=== PATIENT | female | born 1975 | race Two or more races ===

== ENCOUNTER 2017-08-25 22:18 | Emergency (ER) | payer BC, MEDICAID ==
[2017-08-25 22:38] VITALS: BP 176/119
[2017-08-25] MEDS ORDERED: HYDROmorphone 1 MG/ML Syringe IM ONE (23:19)
[2017-08-25] MEDS ORDERED: LORazepam 1 MG Tab PO ONE (23:20)
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
== END 2017-08-25 23:40 | disposition home or self-care (01) ==
LOC: JD.ED 22:18
DX: F43.21 Adjustment disorder with depressed mood (principal); R51 Headache; I10 Essential (primary) hypertension; J45.909 Unspecified asthma, uncomplicated
CPT/HCPCS: 96372; 99283; A9270; J1170

== ENCOUNTER 2017-10-30 15:55 | Emergency (ER) | payer BC, MEDICAID ==
[2017-10-30 16:21] VITALS: BP 139/99
[2017-10-30] MEDS ORDERED: Haloperidol Lactate 5 MG/ML SDV IM ONE (17:47)
[2017-10-30] MEDS ORDERED: diphenhydrAMINE 50 MG/ML SDV IM ONE (17:47)
[2017-10-30] MEDS ORDERED: Ketorolac 60 MG/2 ML SDV IM ONE (17:47)
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
== END 2017-10-30 19:15 | disposition home or self-care (01) ==
LOC: JD.ED 15:55
DX: F41.8 Other specified anxiety disorders (principal); F43.20 Adjustment disorder, unspecified; R51 Headache; I10 Essential (primary) hypertension; Z79.899 Other long term (current) drug therapy
CPT/HCPCS: 96372; 99283; J1200; J1630; J1885

== ENCOUNTER 2017-11-03 19:01 | Emergency (ER) | payer BC ==
[2017-11-03 19:21] VITALS: BP 137/94
[2017-11-03] MEDS ORDERED: HYDROmorphone 1 MG/ML Syringe IM ONE (19:51)
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
--- NOTE | 2017-11-05 17:47 | CR ---
Sacrum and coccyx: Three views of the sacrum and coccyx were obtained. Comparison: No prior study. Sacroiliac joints appear within normal limits. Sacral foramina are patent. No fracture or abnormal subluxation is seen. Impression: 1. No abnormality is identified on three-view sacrum and coccyx study. Diagnostic code #1
== END 2017-11-03 22:55 | disposition home or self-care (01) ==
LOC: JD.ED 19:01
DX: S30.0XXA Contusion of lower back and pelvis, initial encounter (principal); I10 Essential (primary) hypertension; F32.9 Major depressive disorder, single episode, unspecified; J45.909 Unspecified asthma, uncomplicated; Z79.899 Other long term (current) drug therapy; W00.1XXA Fall from stairs and steps due to ice and snow, initial encounter
CPT/HCPCS: 72220; 72220-26; 96372; 99283-25; J1170

== ENCOUNTER 2018-11-14 09:08 | Emergency (ER) | payer BC, MEDICAID ==
[2018-11-14 09:24] VITALS: BP 151/96
[2018-11-14] MEDS ORDERED: Prochlorperazine 10 MG/2 ML SDV IVPUSH ONE (09:49)
[2018-11-14] MEDS ORDERED: Ketorolac 30 MG/ML SDV IVPUSH ONE (09:49)
[2018-11-14] MEDS ORDERED: diphenhydrAMINE 50 MG/ML SDV IVPUSH ONE (09:49)
[2018-11-14] MEDS ORDERED: Sodium Chloride 0.9% 10 ML Syringe FLUSH PRN (09:49)
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
== END 2018-11-14 11:28 | disposition home or self-care (01) ==
LOC: JD.ED 09:08
DX: R51 Headache (principal); I10 Essential (primary) hypertension; Z79.899 Other long term (current) drug therapy
CPT/HCPCS: 96374; 96375; 99284; J0780; J1200; J1885

== ENCOUNTER 2018-12-04 07:56 | Emergency (ER) | payer BC ==
[2018-12-04 08:07] VITALS: BP 158/122
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
== END 2018-12-04 08:51 | disposition home or self-care (01) ==
LOC: JD.ED 07:56
DX: H15.101 Unspecified episcleritis, right eye (principal); I10 Essential (primary) hypertension; F41.9 Anxiety disorder, unspecified; F32.9 Major depressive disorder, single episode, unspecified; Z79.899 Other long term (current) drug therapy; Z98.51 Tubal ligation status
CPT/HCPCS: 99282

== ENCOUNTER 2019-02-05 04:13 | Emergency (ER) | payer BC, MEDICAID ==
[2019-02-05 04:28] VITALS: BP 184/120
[2019-02-05] MEDS ORDERED: Famotidine 20 MG Tab PO ONE (04:42)
[2019-02-05] MEDS ORDERED: methylPREDNISolone Sodium Succinate 125 MG/2 ML SDV IM ONE (04:42)
[2019-02-05] MEDS ORDERED: diphenhydrAMINE 50 MG Cap PO ONE (04:42)
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
== END 2019-02-05 05:20 | disposition home or self-care (01) ==
LOC: JD.ED 04:13
DX: T78.40XA Allergy, unspecified, initial encounter (principal); J45.909 Unspecified asthma, uncomplicated; F41.9 Anxiety disorder, unspecified; F32.9 Major depressive disorder, single episode, unspecified; Z79.899 Other long term (current) drug therapy
CPT/HCPCS: 96372; 99283; A9270; J2930; 99284

== ENCOUNTER 2019-03-06 07:25 | Emergency (ER) | payer BC, MEDICAID ==
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
[2019-03-06 08:26] VITALS: BP 147/92
== END 2019-03-06 08:15 | disposition home or self-care (01) ==
LOC: JD.ED 07:25
DX: M25.561 Pain in right knee (principal); I10 Essential (primary) hypertension; J45.909 Unspecified asthma, uncomplicated; F41.9 Anxiety disorder, unspecified; F32.9 Major depressive disorder, single episode, unspecified; Z79.899 Other long term (current) drug therapy
CPT/HCPCS: 99283

== ENCOUNTER 2019-06-13 08:14 | Emergency (ER) | payer BC, MEDICAID ==
[2019-06-13 08:32] VITALS: BP 144/103; PULSE 97
[2019-06-13] MEDS ORDERED: HYDROmorphone 1 MG/ML Syringe IVPUSH ONE (08:47)
[2019-06-13] MEDS ORDERED: diphenhydrAMINE 50 MG/ML SDV IVPUSH ONE (08:48)
[2019-06-13] MEDS ORDERED: Metoclopramide 10 MG/2 ML SDV IVPUSH ONE (08:48)
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
[2019-06-13] MEDS ORDERED: Ketorolac 30 MG/ML SDV IVPUSH SCH (09:00)
[2019-06-13] MEDS ORDERED: Dextrose 5%-0.9% NaCl 1,000 ML IV SCH (09:00)
== END 2019-06-13 10:49 | disposition home or self-care (01) ==
LOC: JD.ED 08:14
DX: G43.909 Migraine, unspecified, not intractable, without status migrainosus (principal); I10 Essential (primary) hypertension; J45.909 Unspecified asthma, uncomplicated; F41.9 Anxiety disorder, unspecified; F32.9 Major depressive disorder, single episode, unspecified; Z79.899 Other long term (current) drug therapy
CPT/HCPCS: 96361; 96374; 96375; 99283; J1170; J1200; J1885; J2765; J7042; 99284

== ENCOUNTER 2019-08-21 11:31 | Emergency (ER) | payer BC, MEDICAID ==
[2019-08-21] MEDS ORDERED: HYDROmorphone 0.5 MG/0.5 ML Syringe IVPUSH ONE (11:56)
[2019-08-21] MEDS ORDERED: Ketorolac 60 MG/2 ML SDV IVPUSH ONE (11:57)
[2019-08-21] MEDS ORDERED: diphenhydrAMINE 50 MG/ML SDV IVPUSH ONE (11:58)
[2019-08-21] MEDS ORDERED: Metoclopramide 10 MG/2 ML SDV IVPUSH ONE (11:59)
[2019-08-21] MEDS ORDERED: Sodium Chloride 0.9% 1,000 ML IV SCH (12:00)
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
[2019-08-21 14:01] VITALS: BP 151/99; PULSE 79
== END 2019-08-21 13:45 | disposition home or self-care (01) ==
LOC: JD.ED 11:31
DX: G43.909 Migraine, unspecified, not intractable, without status migrainosus (principal); J45.909 Unspecified asthma, uncomplicated; I10 Essential (primary) hypertension; Z79.899 Other long term (current) drug therapy
CPT/HCPCS: 96361; 96374; 96375; 99283; J1170; J1200; J1885; J2765; J7040

== ENCOUNTER 2019-12-21 08:33 | Emergency (ER) | payer BC, MEDICAID ==
[2019-12-21 08:48] VITALS: BP 161/104; PULSE 85
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
[2019-12-21] MEDS ORDERED: Lactated Ringers 1,000 ML IV ONE (09:07)
[2019-12-21] MEDS ORDERED: diphenhydrAMINE 50 MG/ML SDV IVPUSH ONE (09:07)
[2019-12-21] MEDS ORDERED: LORazepam 2 MG/ML SDV IVPUSH ONE (09:07)
[2019-12-21] MEDS ORDERED: Ondansetron 4 MG/2 ML SDV IVPUSH ONE (09:07)
[2019-12-21] MEDS ORDERED: HYDROmorphone 0.5 MG/0.5 ML Syringe IVPUSH ONE (10:16)
== END 2019-12-21 11:20 | disposition home or self-care (01) ==
LOC: JD.ED 08:33
DX: R51 Headache (principal); I10 Essential (primary) hypertension; J45.909 Unspecified asthma, uncomplicated; F41.9 Anxiety disorder, unspecified; F32.9 Major depressive disorder, single episode, unspecified; Z79.899 Other long term (current) drug therapy
CPT/HCPCS: 96361; 96374; 96375; 99283; J1170; J1200; J2060; J2405; J7120

== ENCOUNTER 2020-04-27 13:19 | Emergency (ER) | payer BC, MEDICAID ==
[2020-04-27 13:43] VITALS: BP 160/104; PULSE 80
[2020-04-27] MEDS ORDERED: Sodium Chloride 0.9% 10 ML Syringe FLUSH PRN (14:03)
[2020-04-27] MEDS ORDERED: Ondansetron 4 MG/2 ML SDV IVPUSH ONE (14:03)
[2020-04-27] MEDS ORDERED: Sodium Chloride 0.9% 1,000 ML IV SCH (14:15)
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
--- NOTE | 2020-04-27 15:27 | CT ---
Head CT Technique: Multiple axial sections through the brain were obtained. Intravenous contrast was not utilized. Comparison: Prior head CT study of 04/06/16. Findings: Ventricles along with basal cisterns and sulci over the convexities are within normal limits for the patient's age. No abnormal parenchymal densities are seen. No evidence of intracranial hemorrhage. No midline shift or mass-effect is seen. Bone window settings were reviewed. No acute calvarial finding is seen. Visualized mastoid sinuses and visualized paranasal sinuses are clear. Impression: 1. No acute intracranial abnormality is appreciated. Diagnostic code #1 This report was dictated in MDT
== END 2020-04-27 16:22 | disposition home or self-care (01) ==
LOC: JD.ED 13:19
DX: R42 Dizziness and giddiness (principal); I10 Essential (primary) hypertension; Z98.890 Other specified postprocedural states; Z88.8 Allergy status to other drugs, medicaments and biological substances; Z79.899 Other long term (current) drug therapy
CPT/HCPCS: 36415; 70450; 80053; 85025; 96361; 96374; 99284; A9270; J2405; J7030; 99283

== ENCOUNTER 2020-05-22 17:03 | Emergency (ER) | payer BC ==
[2020-05-22 17:22] VITALS: BP 137/105; PULSE 86
[2020-05-22] MEDS ORDERED: Sodium Chloride 0.9% 10 ML Syringe FLUSH PRN (17:22)
[2020-05-22] MEDS ORDERED: Metoclopramide 10 MG/2 ML SDV IVPUSH ONE (17:22)
[2020-05-22] MEDS ORDERED: Sodium Chloride 0.9% 1,000 ML IV ONE (17:22)
[2020-05-22] MEDS ORDERED: Ketorolac 30 MG/ML SDV IVPUSH ONE (17:22)
[2020-05-22] MEDS ORDERED: diphenhydrAMINE 50 MG/ML SDV IVPUSH ONE (17:22)
[2020-05-22] MEDS ORDERED: HYDROmorphone 0.5 MG/0.5 ML Syringe IVPUSH ONE (17:31)
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
== END 2020-05-22 19:05 | disposition home or self-care (01) ==
LOC: JD.ED 17:03
DX: G43.909 Migraine, unspecified, not intractable, without status migrainosus (principal); I10 Essential (primary) hypertension; J45.909 Unspecified asthma, uncomplicated; F32.9 Major depressive disorder, single episode, unspecified; Z79.899 Other long term (current) drug therapy; Z88.8 Allergy status to other drugs, medicaments and biological substances
CPT/HCPCS: 96361; 96374; 96375; 99283; J1170; J1200; J1885; J2765; J7030

== ENCOUNTER 2020-10-05 04:43 | Emergency (ER) | payer BC ==
[2020-10-05 04:52] VITALS: BP 148/100; PULSE 83
[2020-10-05] MEDS ORDERED: Ketorolac 30 MG/ML SDV IVPUSH STA (05:12)
[2020-10-05] MEDS ORDERED: Metoclopramide 10 MG/2 ML SDV IVPUSH STA (05:12)
[2020-10-05] MEDS ORDERED: diphenhydrAMINE 50 MG/ML SDV IVPUSH STA (05:12)
[2020-10-05] MEDS ORDERED: Sodium Chloride 0.9% 1,000 ML IV ONE (05:12)
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
== END 2020-10-05 06:50 | disposition home or self-care (01) ==
LOC: JD.ED 04:43
DX: R51.9 Headache, unspecified (principal); I10 Essential (primary) hypertension; J45.909 Unspecified asthma, uncomplicated; E66.9 Obesity, unspecified; Z68.41 Body mass index [BMI] 40.0-44.9, adult; Z88.8 Allergy status to other drugs, medicaments and biological substances; Z79.899 Other long term (current) drug therapy
CPT/HCPCS: 96374; 96375; 99283; J1200; J1885; J2765; J7030

== ENCOUNTER 2021-02-04 06:55 | Emergency (ER) | payer BC, MEDICAID ==
[2021-02-04 07:09] VITALS: BP 176/133; PULSE 88
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
[2021-02-04] MEDS ORDERED: diphenhydrAMINE 50 MG/ML SDV IVPUSH ONE (07:17)
[2021-02-04] MEDS ORDERED: Lactated Ringers 1,000 ML IV ONE (07:17)
[2021-02-04] MEDS ORDERED: Ketorolac 15 MG/ML SDV IVPUSH ONE (07:17)
[2021-02-04] MEDS ORDERED: Metoclopramide 10 MG/2 ML SDV IVPUSH ONE (07:17)
== END 2021-02-04 09:05 | disposition home or self-care (01) ==
LOC: JD.ED 06:55
DX: G43.909 Migraine, unspecified, not intractable, without status migrainosus (principal); Z88.8 Allergy status to other drugs, medicaments and biological substances; I10 Essential (primary) hypertension; E66.9 Obesity, unspecified; J45.909 Unspecified asthma, uncomplicated; Z79.899 Other long term (current) drug therapy; Z68.41 Body mass index [BMI] 40.0-44.9, adult
CPT/HCPCS: 96374; 96375; 99283; J1200; J1885; J2765; J7120

== ENCOUNTER 2021-09-01 13:59 | Emergency (ER) | payer BC ==
[2021-09-01 14:33] VITALS: BP 162/125; PULSE 98
[2021-09-01] MEDS ORDERED: Ketorolac 30 MG/ML SDV IVPUSH ONE (14:39)
[2021-09-01] MEDS ORDERED: Sodium Chloride 0.9% 1,000 ML IV STA (14:39)
[2021-09-01] MEDS ORDERED: Metoclopramide 10 MG/2 ML SDV IVPUSH ONE (14:39)
[2021-09-01] MEDS ORDERED: diphenhydrAMINE 50 MG/ML SDV IVPUSH ONE (14:40)
[2021-09-01] MEDS ORDERED: HYDROmorphone 0.5 MG/0.5 ML Syringe IVPUSH ONE (14:40)
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
== END 2021-09-01 16:05 | disposition home or self-care (01) ==
LOC: JD.ED 13:59
DX: G43.909 Migraine, unspecified, not intractable, without status migrainosus (principal); J45.909 Unspecified asthma, uncomplicated; I10 Essential (primary) hypertension; E66.9 Obesity, unspecified; Z68.41 Body mass index [BMI] 40.0-44.9, adult; Z79.899 Other long term (current) drug therapy; Z88.8 Allergy status to other drugs, medicaments and biological substances; Z91.048 Other nonmedicinal substance allergy status
CPT/HCPCS: 96374; 96375; 99283; J1170; J1200; J1885; J2765; J7030

== ENCOUNTER 2022-01-03 12:02 | Emergency (ER) | payer BC, MEDICAID ==
[2022-01-03] MEDS ORDERED: Sodium Chloride 0.9% 10 ML Syringe FLUSH PRN ×3 (12:21→12:35)
[2022-01-03] MEDS ORDERED: Ondansetron 4 MG/2 ML SDV IVPUSH ONE (12:25)
[2022-01-03] MEDS ORDERED: Sodium Chloride 0.9% 1,000 ML IV STA (12:25)
[2022-01-03] MEDS ORDERED: HYDROmorphone 0.5 MG/0.5 ML Syringe IVPUSH ONE ×2 (12:25→13:34)
[2022-01-03] MEDS ORDERED: Iopamidol 612 MG/ML 100 ML Bottle IVPUSH ONE (12:32)
[2022-01-03] MEDS ORDERED: Iopamidol 755 Mg/ML 100 ML Bottle IVPUSH ONE (12:35)
[2022-01-03] MEDS ORDERED: Iopamidol 755 MG/ML 50 ML Bottle IVPUSH ONE (12:35)
[2022-01-03] MEDS ORDERED: Acetaminophen/oxyCODONE 325-5 MG Tab PO ONE (14:09)
[2022-01-03 14:25] VITALS: BP 148/74; PULSE 99
== END 2022-01-03 14:25 | disposition home or self-care (01) ==
LOC: JD.ED 12:02
DX: K92.2 Gastrointestinal hemorrhage, unspecified (principal); G89.18 Other acute postprocedural pain; I10 Essential (primary) hypertension; E66.9 Obesity, unspecified; Z68.41 Body mass index [BMI] 40.0-44.9, adult; Z88.8 Allergy status to other drugs, medicaments and biological substances; Z91.09 Other allergy status, other than to drugs and biological substances; Z20.822 Contact with and (suspected) exposure to COVID-19
CPT/HCPCS: 36415; 74177; 80053; 82272; 85025; 86140; 86850; 86900; 86901; 87635; 96374; 96375; 96376; 99285; A9270; J1170; J2405; J3490; J7030; Q9967; U0002

== ENCOUNTER 2022-01-09 00:23 | Emergency (ER) | payer BC ==
[2022-01-09 00:46] VITALS: BP 144/98; PULSE 97
[2022-01-09] MEDS ORDERED: Acetaminophen/oxyCODONE 325-5 MG Tab PO ONE (03:23)
== END 2022-01-09 03:37 | disposition home or self-care (01) ==
LOC: JD.ED 00:23
DX: R10.9 Unspecified abdominal pain (principal); I10 Essential (primary) hypertension; E66.9 Obesity, unspecified; Z68.41 Body mass index [BMI] 40.0-44.9, adult; Z88.8 Allergy status to other drugs, medicaments and biological substances
CPT/HCPCS: 99283; A9270

== ENCOUNTER 2022-07-28 16:28 | Emergency (ER) | payer BC, OTHER ==
[2022-07-28 16:46] VITALS: BP 168/119; PULSE 78
[2022-07-28] MEDS ORDERED: Ketorolac 30 MG/ML SDV IVPUSH ONE (19:02)
[2022-07-28] MEDS ORDERED: Sodium Chloride 0.9% 1,000 ML IV STA (19:02)
[2022-07-28] MEDS ORDERED: Metoclopramide 10 MG/2 ML SDV IVPUSH ONE (19:02)
[2022-07-28] MEDS ORDERED: HYDROmorphone 0.5 MG/0.5 ML Syringe IVPUSH ONE (19:02)
[2022-07-28] MEDS ORDERED: diphenhydrAMINE 50 MG/ML SDV IVPUSH ONE (19:03)
== END 2022-07-28 21:10 | disposition home or self-care (01) ==
LOC: JD.ED 16:28
DX: G43.919 Migraine, unspecified, intractable, without status migrainosus (principal); I10 Essential (primary) hypertension; J45.909 Unspecified asthma, uncomplicated; E66.9 Obesity, unspecified; Z68.31 Body mass index [BMI] 31.0-31.9, adult; Z88.8 Allergy status to other drugs, medicaments and biological substances; Z91.048 Other nonmedicinal substance allergy status; Z79.899 Other long term (current) drug therapy
CPT/HCPCS: 96361; 96374; 96375; 99283; J1170; J1200; J1885; J2765; J7030

== ENCOUNTER 2022-10-12 17:39 | Emergency (ER) | payer BC ==
[2022-10-12 18:06] VITALS: BP 166/119; PULSE 92
[2022-10-12] MEDS ORDERED: Sodium Chloride 0.9% 10 ML Syringe FLUSH PRN (18:23)
[2022-10-12] MEDS ORDERED: Ondansetron 4 MG/2 ML SDV IVPUSH ONE (18:23)
[2022-10-12] MEDS ORDERED: Ketorolac 30 MG/ML SDV IVPUSH ONE (18:23)
[2022-10-12] MEDS ORDERED: Sodium Chloride 0.9% 1,000 ML IV ONE (18:23)
[2022-10-12] MEDS ORDERED: HYDROmorphone 0.5 MG/0.5 ML Syringe IVPUSH ONE (20:02)
== END 2022-10-12 21:25 | disposition home or self-care (01) ==
LOC: JD.ED 17:39
DX: U07.1 COVID-19 (principal); I10 Essential (primary) hypertension; J45.909 Unspecified asthma, uncomplicated; E66.9 Obesity, unspecified; Z68.30 Body mass index [BMI] 30.0-30.9, adult; Z88.8 Allergy status to other drugs, medicaments and biological substances; Z91.09 Other allergy status, other than to drugs and biological substances
CPT/HCPCS: 36415; 80053; 83735; 85025; 96361; 96374; 96375; 99283; J1170; J1885; J2405; J3490; J7030

== ENCOUNTER 2022-10-16 14:02 | Emergency (ER) | payer BC ==
[2022-10-16] MEDS ORDERED: HYDROmorphone 1 MG/ML Syringe IM ONE (14:53)
[2022-10-16] MEDS ORDERED: Ondansetron 4 MG Tab.DIS PO ONE (14:53)
[2022-10-16] MEDS ORDERED: Ketorolac 30 MG/ML SDV IM ONE (15:33)
[2022-10-16] MEDS ORDERED: HYDROmorphone 0.5 MG/0.5 ML Syringe IM ONE (15:33)
[2022-10-16 17:10] VITALS: BP 159/115; PULSE 76
== END 2022-10-16 17:05 | disposition home or self-care (01) ==
LOC: JD.ED 14:02
DX: R51.9 Headache, unspecified (principal); I10 Essential (primary) hypertension; E66.9 Obesity, unspecified; Z68.29 Body mass index [BMI] 29.0-29.9, adult; Z88.8 Allergy status to other drugs, medicaments and biological substances; Z91.09 Other allergy status, other than to drugs and biological substances
CPT/HCPCS: 96372; 99283; A9270; J1170; J1885

== ENCOUNTER 2022-10-17 15:02 | Emergency (ER) | payer BC ==
[2022-10-17 15:10] VITALS: PULSE 104
[2022-10-17] MEDS ORDERED: Ketorolac 60 MG/2 ML SDV IM ONE (15:25)
[2022-10-17] MEDS ORDERED: LORazepam 2 MG/ML SDV IM ONE ×2 (15:26→16:23)
[2022-10-17] MEDS ORDERED: Acetaminophen 325 MG Tab PO ONE (17:14)
[2022-10-17 17:47] VITALS: BP 146/108
== END 2022-10-17 17:40 | disposition home or self-care (01) ==
LOC: JD.ED 15:02
DX: F41.9 Anxiety disorder, unspecified (principal); R51.9 Headache, unspecified; I10 Essential (primary) hypertension; J45.909 Unspecified asthma, uncomplicated; E66.9 Obesity, unspecified; Z68.29 Body mass index [BMI] 29.0-29.9, adult; Z88.8 Allergy status to other drugs, medicaments and biological substances; Z91.048 Other nonmedicinal substance allergy status; Z79.899 Other long term (current) drug therapy
CPT/HCPCS: 96372; 99283; A9270; J1885; J2060

== ENCOUNTER 2022-10-18 00:31 | Emergency (ER) | payer BC ==
[2022-10-18] MEDS ORDERED: HYDROmorphone 1 MG/ML Syringe IM ONE ×2 (01:59→02:32)
[2022-10-18] MEDS ORDERED: diphenhydrAMINE 50 MG Cap PO ONE (01:59)
[2022-10-18 02:58] VITALS: BP 145/70; PULSE 89
== END 2022-10-18 02:57 | disposition home or self-care (01) ==
LOC: JD.ED 00:31
DX: G47.00 Insomnia, unspecified (principal); I10 Essential (primary) hypertension; E66.9 Obesity, unspecified; Z88.8 Allergy status to other drugs, medicaments and biological substances; Z68.30 Body mass index [BMI] 30.0-30.9, adult; Z79.899 Other long term (current) drug therapy
CPT/HCPCS: 96372; 99283; J1170; Q0163

== ENCOUNTER 2022-12-30 09:05 | Emergency (ER) | payer BC ==
[2022-12-30 10:19] LABS: CORONAVIRUS COVID-19 NAA NEGATIVE (NEGATIVE)
[2022-12-30] MEDS ORDERED: diphenhydrAMINE 50 MG/ML SDV IVPUSH ONE (10:19)
[2022-12-30] MEDS ORDERED: Ondansetron 4 MG/2 ML SDV IVPUSH ONE (10:19)
[2022-12-30] MEDS ORDERED: Lactated Ringers 1,000 ML IV ONE (10:19)
[2022-12-30] MEDS ORDERED: Acetaminophen 325 MG Tab PO ONE (11:31)
[2022-12-30] MEDS ORDERED: LORazepam 2 MG/ML SDV IVPUSH ONE (11:32)
[2022-12-30 13:32] VITALS: BP 155/104; PULSE 68
== END 2022-12-30 13:02 | disposition home or self-care (01) ==
LOC: JD.ED 09:05
DX: G44.209 Tension-type headache, unspecified, not intractable (principal); M79.10 Myalgia, unspecified site; J45.909 Unspecified asthma, uncomplicated; E66.9 Obesity, unspecified; Z68.30 Body mass index [BMI] 30.0-30.9, adult; Z91.09 Other allergy status, other than to drugs and biological substances; Z88.8 Allergy status to other drugs, medicaments and biological substances; Z86.16 Personal history of COVID-19; Z20.822 Contact with and (suspected) exposure to COVID-19
CPT/HCPCS: 0241U; 36415; 80053; 83690; 83735; 85025; 96361; 96374; 96375; 99284; A9270; J1200; J2060; J2405; J7120; 99283

== ENCOUNTER 2022-12-30 19:59 | Emergency (ER) | payer BC ==
[2022-12-30] MEDS ORDERED: Ketorolac 30 MG/ML SDV IM ONE (20:35)
[2022-12-30] MEDS ORDERED: HYDROmorphone 1 MG/ML Syringe IM ONE (20:35)
[2022-12-30] MEDS ORDERED: Metoclopramide 10 MG/2 ML SDV IM ONE (20:35)
[2022-12-30] MEDS ORDERED: diphenhydrAMINE 50 MG/ML SDV IM ONE (20:35)
[2022-12-30] MEDS ORDERED: HYDROmorphone 0.5 MG/0.5 ML Syringe IM ONE (22:00)
[2022-12-30 23:25] VITALS: BP 137/99; PULSE 85
== END 2022-12-30 22:30 | disposition home or self-care (01) ==
LOC: JD.ED 19:59
DX: R51.9 Headache, unspecified (principal); I10 Essential (primary) hypertension; J45.909 Unspecified asthma, uncomplicated; E66.9 Obesity, unspecified; Z68.30 Body mass index [BMI] 30.0-30.9, adult; Z86.16 Personal history of COVID-19
CPT/HCPCS: 96372; 99283; J1170; J1200; J1885

== ENCOUNTER 2023-02-13 18:15 | Emergency (ER) | payer BC ==
[2023-02-13] MEDS ORDERED: Sodium Chloride 0.9% 10 ML Syringe FLUSH PRN (19:11)
[2023-02-13] MEDS ORDERED: HYDROmorphone 0.5 MG/0.5 ML Syringe IVPUSH ONE ×2 (19:12→20:31)
[2023-02-13] MEDS ORDERED: Sodium Chloride 0.9% 1,000 ML IV STA (19:12)
[2023-02-13] MEDS ORDERED: Ondansetron 4 MG/2 ML SDV IVPUSH ONE (19:12)
[2023-02-13 19:34] LABS: APPEARANCE,URINE CLEAR (Clear); BILIRUBIN,URINE NEGATIVE (Negative); COLOR,URINE YELLOW (Yellow); GLUCOSE,URINE NEGATIVE (Negative); KETONES,URINE NEGATIVE (Negative); LEUKOCYTE ESTERASE,URINE TRACE (Negative); NITRITE,URINE NEGATIVE (Negative); OCCULT BLOOD,URINE 3+ (Negative); PROTEIN,URINE NEGATIVE (Negative); UROBILINOGEN,URINE 0.2 (0.2-1.0)
[2023-02-13 20:01] LABS: BACTERIA,URINE FEW /hpf (FEW); MUCUS,URINE MODERATE /hpf (FEW); RBC,URINE 75-100 /hpf (0-5); SQUAMOUS EPITHELIAL CELLS,UR 0-5 /hpf (0-5); WBC,URINE 0-5 /hpf (0-5)
[2023-02-13 20:02] LABS: HYALINE CASTS,URINE 0-5 /lpf (0-5)
[2023-02-13 20:17] LABS: BASOPHILS ABSOLUTE AUTO 0.02 K/mm3 (0.01-0.08); BASOPHILS PERCENT AUTO 0.2 % (0.1-1.2); EOSINOPHILS ABSOLUTE AUTO 0.03 K/mm3 (0.04-0.36); EOSINOPHILS PERCENT AUTO 0.3 (0.7-5.8); HEMATOCRIT 38.4 % (34.1-44.9); HEMOGLOBIN 12.2 gm/dl (11.2-15.7); IMMATURE GRAN ABSOLUTE AUTO 0.01 K/mm3 (0.00-0.10); IMMATURE GRAN PERCENT AUTO 0.1 % (<=1.0); LYMPHOCYTES ABSOLUTE AUTO 1.79 K/mm3 (1.18-3.74); LYMPHOCYTES PERCENT AUTO 20.6 % (19.3-51.7); MEAN CORPUSCULAR HEMOGLOBIN 27.9 pg (25.6-32.2); MEAN CORPUSCULAR HGB CONC 31.8 g/dl (32.2-35.5); MEAN CORPUSCULAR VOLUME 87.9 fl (79.4-94.8); MEAN PLATELET VOLUME 11.8 fl (9.4-12.3); MONOCYTES ABSOLUTE AUTO 0.95 K/mm3 (0.24-0.36); MONOCYTES PERCENT AUTO 10.9 % (4.7-12.5); NEUTROPHILS ABSOLUTE AUTO 5.88 K/mm3 (1.56-6.13); NEUTROPHILS PERCENT AUTO 67.9 % (34.0-71.1); PLATELET COUNT,PLT 245 K/mm3 (182-369); RED BLOOD CELL COUNT 4.37 M/mm3 (3.98-5.22); WHITE BLOOD CELL COUNT,WBC 8.68 K/mm3 (3.98-10.04)
[2023-02-13 20:40] LABS: ALANINE AMINOTRANSFERASE,ALT 28 U/L (14-59); ALBUMIN 3.9 g/dl (3.4-5.0); ALKALINE PHOSPHATASE 77 U/L (46-116); ANION GAP 9.7 (5-15); ASPARTATE AMNIOTRANSFERASE,AST 22 U/L (15-37); BILIRUBIN TOTAL 0.5 mg/dL (0.2-1.0); BLOOD UREA NITROGEN,BUN 21 mg/dL (7-18); C-REACTIVE PROTEIN <0.2 mg/dL (<1.0); CARBON DIOXIDE,CO2 28 mEq/L (21-32); CHLORIDE,CL 104 mEq/L (98-107); EST CRCL DRUG DOSING (CG) 61.35 mL/min; ESTIMATED GFR 71 mL/min (>60); GLUCOSE RANDOM 101 mg/dL (70-99); POTASSIUM,K 3.7 mEq/L (3.5-5.1); PROTEIN TOTAL,TP 7.8 g/dl (6.4-8.2); SODIUM,NA 138 mEq/L (136-145)
[2023-02-13] MEDS ORDERED: Ketorolac 30 MG/ML SDV IVPUSH ONE (22:37)
[2023-02-13] MEDS ORDERED: Tamsulosin 0.4 MG Cap.ER PO ONE (22:37)
[2023-02-14 01:32] VITALS: BP 180/109; PULSE 99
== END 2023-02-13 23:00 | disposition home or self-care (01) ==
LOC: JD.ED 18:15
DX: N13.2 Hydronephrosis with renal and ureteral calculous obstruction (principal); I10 Essential (primary) hypertension; J45.909 Unspecified asthma, uncomplicated; E66.9 Obesity, unspecified; Z68.29 Body mass index [BMI] 29.0-29.9, adult; Z86.16 Personal history of COVID-19; Z79.899 Other long term (current) drug therapy; Z91.048 Other nonmedicinal substance allergy status; Z88.8 Allergy status to other drugs, medicaments and biological substances
CPT/HCPCS: 36415; 74176; 80053; 81001; 81025; 85025; 86140; 96361; 96374; 96375; 96376; 99284; A9270; J1170; J1885; J2405; J7030

== ENCOUNTER 2023-02-14 14:50 | Emergency (ER) | payer BC ==
[2023-02-14 15:01] VITALS: BP 151/97; PULSE 73
[2023-02-14] MEDS ORDERED: HYDROmorphone 1 MG/ML Syringe IM ONE (15:09)
[2023-02-14] MEDS ORDERED: Acetaminophen/oxyCODONE 325-5 MG Tab PO ONE (16:05)
[2023-02-14] MEDS ORDERED: Ketorolac 30 MG/ML SDV IM ONE (16:05)
== END 2023-02-14 17:33 | disposition home or self-care (01) ==
LOC: JD.ED 14:50
DX: N23 Unspecified renal colic (principal); I10 Essential (primary) hypertension; J45.909 Unspecified asthma, uncomplicated; E66.9 Obesity, unspecified; Z68.29 Body mass index [BMI] 29.0-29.9, adult; Z86.16 Personal history of COVID-19; Z79.899 Other long term (current) drug therapy; Z88.8 Allergy status to other drugs, medicaments and biological substances; Z91.048 Other nonmedicinal substance allergy status
CPT/HCPCS: 96372; 99283; A9270; J1170; J1885

== ENCOUNTER 2023-03-16 15:40 | Emergency (ER) | payer BC ==
[2023-03-16 16:12] VITALS: BP 152/99; PULSE 70
== END 2023-03-16 16:24 | disposition left against medical advice (07) ==
LOC: JD.ED 15:40
DX: Z53.21 Procedure and treatment not carried out due to patient leaving prior to being seen by health care provider (principal)

== ENCOUNTER 2023-04-27 19:18 | Emergency (ER) | payer BC ==
[2023-04-27] MEDS ORDERED: Ketorolac 60 MG/2 ML SDV IM ONE (20:22)
[2023-04-27] MEDS ORDERED: HYDROmorphone 1 MG/ML Syringe IM ONE (20:22)
[2023-04-27] MEDS ORDERED: Ondansetron 4 MG/2 ML SDV IM ONE (20:22)
[2023-04-27] MEDS ORDERED: Ondansetron 4 MG/2 ML SDV IVPUSH ONE (21:14)
[2023-04-27] MEDS ORDERED: Ketorolac 30 MG/ML SDV IVPUSH ONE (21:14)
[2023-04-27] MEDS ORDERED: HYDROmorphone 1 MG/ML Syringe IVPUSH STA (21:14)
[2023-04-27] MEDS ORDERED: Sodium Chloride 0.9% 1,000 ML IV ONE (21:14)
[2023-04-27] MEDS: Sodium Chloride 0.9% 10 ML Syringe FLUSH PRN ×2 (21:29→22:20)
[2023-04-27] MEDS ORDERED: HYDROmorphone 0.5 MG/0.5 ML Syringe IVPUSH ONE (22:12)
[2023-04-27 23:14] VITALS: BP 134/72; PULSE 79
== END 2023-04-27 23:12 | disposition home or self-care (01) ==
LOC: JD.ED 19:18
DX: R51.9 Headache, unspecified (principal); I10 Essential (primary) hypertension; J45.909 Unspecified asthma, uncomplicated; E66.9 Obesity, unspecified; Z68.28 Body mass index [BMI] 28.0-28.9, adult; Z86.16 Personal history of COVID-19; Z88.8 Allergy status to other drugs, medicaments and biological substances; Z91.048 Other nonmedicinal substance allergy status; Z79.899 Other long term (current) drug therapy
CPT/HCPCS: 96361; 96374; 96375; 96376; 99283; J1170; J1885; J2405; J3490; J7030

== ENCOUNTER 2023-07-14 01:12 | Emergency (ER) | payer BC ==
[2023-07-14] MEDS ORDERED: oxyCODONE ER 10 MG TAB.ER PO ONE (01:41)
[2023-07-14] MEDS ORDERED: Ketorolac 30 MG/ML SDV IVPUSH ONE (01:41)
[2023-07-14] MEDS ORDERED: diphenhydrAMINE 50 MG/ML SDV IVPUSH ONE (01:41)
[2023-07-14] MEDS ORDERED: Sodium Chloride 0.9% 1,000 ML IV ONE (01:41)
[2023-07-14] MEDS ORDERED: Sodium Chloride 0.9% 10 ML Syringe FLUSH PRN (01:45)
[2023-07-14] MEDS ORDERED: methylPREDNISolone Sodium Succinate 125 MG/2 ML SDV IVPUSH ONE (01:46)
[2023-07-14 03:18] VITALS: BP 175/108; PULSE 81
== END 2023-07-14 03:10 | disposition home or self-care (01) ==
LOC: JD.ED 01:12
DX: G43.109 Migraine with aura, not intractable, without status migrainosus (principal); M79.651 Pain in right thigh; F41.9 Anxiety disorder, unspecified; I10 Essential (primary) hypertension; J45.909 Unspecified asthma, uncomplicated; E66.9 Obesity, unspecified; Z68.27 Body mass index [BMI] 27.0-27.9, adult; Z86.16 Personal history of COVID-19; Z88.8 Allergy status to other drugs, medicaments and biological substances; Z91.09 Other allergy status, other than to drugs and biological substances
CPT/HCPCS: 96374; 96375; 99283; A9270; J1200; J1885; J2930; J3490; J7030

== ENCOUNTER 2023-07-14 09:57 | Emergency (ER) | payer BC ==
[2023-07-14] MEDS ORDERED: Ketorolac 30 MG/ML SDV IVPUSH ONE (11:10)
[2023-07-14] MEDS ORDERED: HYDROmorphone 0.5 MG/0.5 ML Syringe IVPUSH ONE (11:10)
[2023-07-14] MEDS ORDERED: diphenhydrAMINE 50 MG/ML SDV IVPUSH ONE (11:11)
[2023-07-14] MEDS ORDERED: Metoclopramide 10 MG/2 ML SDV IVPUSH ONE (11:11)
[2023-07-14] MEDS ORDERED: Sodium Chloride 0.9% 1,000 ML IV SCH (11:15)
[2023-07-14 13:16] VITALS: BP 159/106; PULSE 71
== END 2023-07-14 13:04 | disposition home or self-care (01) ==
LOC: JD.ED 09:57
DX: G43.909 Migraine, unspecified, not intractable, without status migrainosus (principal); I10 Essential (primary) hypertension; J45.909 Unspecified asthma, uncomplicated; E66.9 Obesity, unspecified; Z68.26 Body mass index [BMI] 26.0-26.9, adult; Z86.16 Personal history of COVID-19; Z79.899 Other long term (current) drug therapy; Z88.8 Allergy status to other drugs, medicaments and biological substances; Z91.048 Other nonmedicinal substance allergy status
CPT/HCPCS: 96361; 96374; 96375; 99283; J1170; J1200; J1885; J2765; J7030

== ENCOUNTER 2023-07-17 05:02 | Emergency (ER) | payer BC ==
[2023-07-17 05:15] VITALS: BP 144/97; PULSE 84
[2023-07-17] MEDS ORDERED: ClonazePAM 0.5 MG Tab PO ONE (05:39)
== END 2023-07-17 06:45 | disposition home or self-care (01) ==
LOC: JD.ED 05:02
DX: F41.8 Other specified anxiety disorders (principal); I10 Essential (primary) hypertension; E66.9 Obesity, unspecified; Z68.30 Body mass index [BMI] 30.0-30.9, adult; Z86.16 Personal history of COVID-19; Z91.048 Other nonmedicinal substance allergy status; Z88.8 Allergy status to other drugs, medicaments and biological substances; Z79.899 Other long term (current) drug therapy
CPT/HCPCS: 99283; A9270

== ENCOUNTER 2023-08-10 20:50 | Emergency (ER) | payer BC ==
[2023-08-10 21:02] VITALS: BP 160/108; PULSE 88
[2023-08-10] MEDS ORDERED: Ketorolac 15 MG/ML SDV IM ONE (21:22)
[2023-08-10 22:33] LABS: APPEARANCE,URINE SLT CLOUDY (Clear); BILIRUBIN,URINE NEGATIVE (Negative); COLOR,URINE YELLOW (Yellow); GLUCOSE,URINE NEGATIVE (Negative); KETONES,URINE TRACE (Negative); LEUKOCYTE ESTERASE,URINE NEGATIVE (Negative); NITRITE,URINE NEGATIVE (Negative); OCCULT BLOOD,URINE NEGATIVE (Negative); PROTEIN,URINE NEGATIVE (Negative); UROBILINOGEN,URINE 0.2 (0.2-1.0)
[2023-08-10 22:57] LABS: BACTERIA,URINE FEW /hpf (FEW); MUCUS,URINE MODERATE /hpf (FEW); RBC,URINE 0-5 /hpf (0-5); WBC,URINE 0-5 /hpf (0-5)
[2023-08-10 22:58] LABS: HYALINE CASTS,URINE 0-5 /lpf (0-5)
== END 2023-08-10 23:04 | disposition home or self-care (01) ==
LOC: JD.ED 20:50
DX: M54.50 Low back pain, unspecified (principal); I10 Essential (primary) hypertension; J45.909 Unspecified asthma, uncomplicated; E66.9 Obesity, unspecified; Z86.16 Personal history of COVID-19; Z88.8 Allergy status to other drugs, medicaments and biological substances; Z91.048 Other nonmedicinal substance allergy status; Z79.899 Other long term (current) drug therapy; Z68.26 Body mass index [BMI] 26.0-26.9, adult
CPT/HCPCS: 81001; 96372; 99283; J1885; 99284

== ENCOUNTER 2024-05-14 08:37 | Day surgery (SDC) | payer BC ==
[~2024-05-14 08:37] MED LIST: Sodium Chloride 0.9% 10 ML Syringe FLUSH PRN; Sodium Chloride 0.9% 10 ML Syringe FLUSH SCH
[2024-05-14] MEDS ORDERED: Lactated Ringers 1,000 ML IV ONE (08:38)
[2024-05-14] MEDS: Lactated Ringers 1,000 ML IV SCH (09:00)
[2024-05-14] MEDS: Acetaminophen 325 MG Tab PO ONE (09:15)
[2024-05-14] MEDS: Gabapentin 300 MG Cap PO ONE (09:15)
[2024-05-14] MEDS: Scopalamine 1mg/3day Transdermal Patch TOP ONE (09:16)
[2024-05-14] MEDS ORDERED: Phenazopyridine 95 MG Tab PO ONE (09:30)
[2024-05-14] MEDS ORDERED: Celecoxib 100 MG Cap PO ONE (09:30)
[2024-05-14] MEDS ORDERED: Rocuronium 50 MG/5 ML Vial ONE ×3 (09:35)
[2024-05-14] MEDS ORDERED: Ondansetron 4 MG/2 ML SDV ONE (09:35)
[2024-05-14] MEDS ORDERED: Midazolam 1 MG/ML 2 ML SDV ONE (09:35)
[2024-05-14] MEDS ORDERED: Dexamethasone 4 MG/ML 5 ML MDV ONE (09:35)
[2024-05-14] MEDS ORDERED: fentaNYL 250 MCG/5 ML SDV ONE (09:35)
[2024-05-14] MEDS ORDERED: Sugammadex Sodium 200 MG/2 ML VIAL IV ONE (09:35)
[2024-05-14] MEDS ORDERED: Propofol 200 MG/20 ML SDV ONE ×5 (09:35→10:25)
[2024-05-14] MEDS ORDERED: Lidocaine 1% 4 ML ONE (09:36)
[2024-05-14] MEDS: Celecoxib 100 MG Cap PO ONE (09:38)
[2024-05-14] MEDS: Phenazopyridine 95 MG Tab PO ONE (09:38)
[2024-05-14] MEDS ORDERED: Ondansetron 4 MG/2 ML SDV IVPUSH PRN (09:51)
[2024-05-14] MEDS ORDERED: ceFAZolin 2 GM Vial ONE (10:05)
[2024-05-14] MEDS: HYDROmorphone 0.5 MG/0.5 ML Syringe IVPUSH PRN (12:09)
[2024-05-14] MEDS: fentaNYL 100 MCG/2 ML SDV IVPUSH PRN (12:25)
[2024-05-14] MEDS: oxyCODONE 5 MG Tab PO PRN (13:23)
[2024-05-14 14:10] VITALS: BP 103/70; PULSE 71
[2024-05-14] MEDS: Lidocaine 1% 10 ML MDV ONE (15:12)
== END 2024-05-14 14:35 | disposition home or self-care (01) ==
LOC: JD.SDS 08:37
PROVIDERS: ATTEND Obstetrics & Gynecology
DX: D25.9 Leiomyoma of uterus, unspecified (principal); N80.03 Adenomyosis of the uterus; N72 Inflammatory disease of cervix uteri; I10 Essential (primary) hypertension; J45.909 Unspecified asthma, uncomplicated; E66.01 Morbid (severe) obesity due to excess calories; F32.A Depression, unspecified; Z79.899 Other long term (current) drug therapy; Z88.5 Allergy status to narcotic agent; Z91.048 Other nonmedicinal substance allergy status
CPT/HCPCS: 58571; A9270; J0690; J1100; J1170; J2250; J2405; J2704; J3010; J3490; J7120; 00944

== ENCOUNTER 2025-03-21 10:52 | Emergency (ER) | payer BC ==
[2025-03-21] MEDS: Ketorolac 30 MG/ML SDV IVPUSH ONE (12:00)
[2025-03-21] MEDS: Sodium Chloride 0.9% 1,000 ML IV ONE (12:00)
[2025-03-21] MEDS ORDERED: Naloxone 0.4 MG/ML SDV IVPUSH PRN (12:54)
[2025-03-21] MEDS: HYDROmorphone 0.5 MG/0.5 ML Syringe IVPUSH ONE (14:03)
[2025-03-21 18:29] VITALS: BP 174/112; PULSE 73
== END 2025-03-21 15:00 | disposition home or self-care (01) ==
LOC: JD.ED 10:52
DX: M54.50 Low back pain, unspecified (principal); I10 Essential (primary) hypertension; E11.9 Type 2 diabetes mellitus without complications; E66.9 Obesity, unspecified; Z90.49 Acquired absence of other specified parts of digestive tract; Z79.899 Other long term (current) drug therapy; Z79.51 Long term (current) use of inhaled steroids; Z88.8 Allergy status to other drugs, medicaments and biological substances; Z88.5 Allergy status to narcotic agent; Z68.29 Body mass index [BMI] 29.0-29.9, adult
CPT/HCPCS: 96361; 96374; 96375; 99283; J1885; J7030; J1171

== ENCOUNTER 2025-05-31 09:05 | Emergency (ER) | payer BC ==
[2025-05-31] MEDS: Iopamidol 755 Mg/ML 100 ML Bottle IVPUSH ONE (09:55)
[2025-05-31] MEDS: Sodium Chloride 0.9% 10 ML Syringe FLUSH ONE (09:55)
[2025-05-31 09:56] LABS: BASOPHILS ABSOLUTE AUTO 0.0 K/mm3 (0.0-0.2); BASOPHILS PERCENT AUTO 0.4 % (0.0-1.0); EOSINOPHILS ABSOLUTE AUTO 0.1 K/mm3 (0.0-0.4); EOSINOPHILS PERCENT AUTO 0.5 % (0.0-6.0); IMMATURE GRAN ABSOLUTE AUTO 0.04 K/mm3 (0.00-0.05); IMMATURE GRAN PERCENT AUTO 0.4 % (0.0-0.4); LYMPHOCYTES ABSOLUTE AUTO 1.4 K/mm3 (1.0-4.8); LYMPHOCYTES PERCENT AUTO 14.6 % (24.0-44.0); MEAN PLATELET VOLUME 10.8 fl (9.4-12.3); MONOCYTES ABSOLUTE AUTO 0.7 K/mm3 (0.0-0.8); MONOCYTES PERCENT AUTO 7.4 % (0.0-8.0); NEUTROPHILS ABSOLUTE AUTO 7.1 K/mm3 (1.8-7.7); NEUTROPHILS PERCENT AUTO 76.7 % (41.0-71.0); NRBC ABSOLUTE 0.00 (0.00-0.02); NRBC PERCENT 0.0 % (0.0-0.2); PLATELET COUNT,PLT 214 K/mm3 (150-400); RED BLOOD CELL COUNT 4.21 M/mm3 (4.10-5.30); WHITE BLOOD CELL COUNT,WBC 9.29 K/mm3 (3.9-11.3)
[2025-05-31 10:36] LABS: A/G RATIO 1.2 (1-2); ALANINE AMINOTRANSFERASE,ALT 28.0 U/L (14-59); ASPARTATE AMNIOTRANSFERASE,AST 20.0 U/L (15-37); BILIRUBIN TOTAL 0.8 mg/dL (0.2-1.0); BLOOD UREA NITROGEN,BUN 25.0 mg/dL (7-18); CARBON DIOXIDE,CO2 28.0 mEq/L (21-32); CHLORIDE,CL 100.0 mEq/L (98-107); CREATINE KINASE,CK 51.0 U/L (26-192); CREATININE 1.0 mg/dL (0.55-1.02); EST CRCL DRUG DOSING (CG) 60.06 mL/min; ESTIMATED GFR 70.0 mL/min (>60); GLUCOSE RANDOM 86.0 mg/dL (70-99); POTASSIUM,K 4.6 mEq/L (3.5-5.1); PROTEIN TOTAL,TP 7.4 g/dl (6.4-8.2); SODIUM,NA 134.0 mEq/L (136-145)
[2025-05-31] MEDS: Ketorolac 60 MG/2 ML SDV IVPUSH STA (10:51)
[2025-05-31 11:31] LABS: BUPRENORPHINE SCREEN,URINE NEGATIVE (CUTOFF=10); METHADONE SCREEN, URINE NEGATIVE (CUTOFF=200); METHAMPHETAMINES SCREEN, URINE NEGATIVE (CUTOFF=500); OXYCODONE SCREEN,URINE PRESUMPTIVE POSITIVE (CUT0FF=100); THC SCREEN,URINE 20 NG/ML NEGATIVE (CUTOFF=50)
[2025-05-31 11:45] LABS: AMPHETAMINES SCREEN, URINE PRESUMPTIVE POSITIVE (CUTOFF=500)
[2025-05-31 20:42] VITALS: BP 136/72; PULSE 65
== END 2025-05-31 14:55 | disposition home or self-care (01) ==
LOC: JD.ED 09:05
DX: K29.70 Gastritis, unspecified, without bleeding (principal); I10 Essential (primary) hypertension; Z91.048 Other nonmedicinal substance allergy status; Z79.899 Other long term (current) drug therapy; Z79.85 Long-term (current) use of injectable non-insulin antidiabetic drugs; Z86.16 Personal history of COVID-19
CPT/HCPCS: 36415; 71260; 74177; 76705; 80053; 80306; 82550; 83690; 83735; 85025; 96361; 96374; 96375; 99284; J1308; J1885; J2470; J7030; Q9967